=== PATIENT | male | born 1980 | race American Indian/Alaskan Native ===

== ENCOUNTER 2021-10-29 07:35 | Outpatient (CLI) | payer OTHER ==
--- NOTE | 2021-10-29 09:43 | Cat Scan Report ---
CT CHEST WITHOUT CONTRAST INDICATION / CLINICAL INFORMATION: [id number]. TECHNIQUE: Axial CT images were obtained through the chest without contrast. All CT scans at this [facility] ation are performed using CT dose reduction for ALARA by means of automated exposure control. COMPARISON: None available. FINDINGS: UPPER ABDOMEN: No acute abnormality. SKELETAL SYSTEM: No acute abnormality. HEART: No significant abnormality. CORONARY ARTERY CALCIFICATION: Absent -- None. THORACIC AORTA: No significant abnormality. MEDIASTINUM / IRENE: No significant abnormality. PLEURA: No pleural effusion. No pneumothorax. LUNGS: No acute air space or interstitial disease. ADDITIONAL FINDINGS: None. IMPRESSION: 1. No significant abnormality. Signer Name: Armando Leon MD Signed: 10/29/2021 9:38 AM Workstation Name: [id number]
== END 2021-10-29 07:36 | disposition home or self-care (01) ==
LOC: CT 07:35
DX: Z01.89 Encounter for other specified special examinations (principal); Z87.891 Personal history of nicotine dependence
CPT/HCPCS: 71250